=== PATIENT | male | born 1975 | race African-American/Black ===

== ENCOUNTER 2021-02-24 16:23 | Emergency (ER) | payer SELFPAY ==
[2021-02-24] MEDS ORDERED: Ibuprofen 800 MG TAB ONE (18:15)
[2021-02-25 16:50] LABS: SARS-CoV-2 PCR by NAA DETECTED (NotDetected)
== END 2021-02-24 18:20 | disposition home or self-care (01) ==
LOC: CSHERS 16:23
DX: U07.1 COVID-19 (principal); I10 Essential (primary) hypertension; F17.210 Nicotine dependence, cigarettes, uncomplicated
CPT/HCPCS: 99283; U0003; U0005